=== PATIENT | male | born 1955 | race Caucasian/White ===

== ENCOUNTER 2024-09-03 14:37 | Emergency (ER) | payer SELFPAY ==
[2024-09-03 15:07] VITALS: TEMP 97
[2024-09-03 18:30] VITALS: BP 157/90
[2024-09-03 18:37] VITALS: O2SAT 99
== END 2024-09-03 18:58 | disposition home or self-care (01) ==
LOC: EDBD 14:37 → M ED 15:58
DX: R09.89 Other specified symptoms and signs involving the circulatory and respiratory systems (principal); I48.91 Unspecified atrial fibrillation; E11.9 Type 2 diabetes mellitus without complications; I10 Essential (primary) hypertension; E78.5 Hyperlipidemia, unspecified